=== PATIENT | male | born 1985 | race Two or more races ===

== ENCOUNTER 2018-11-03 12:00 | Inpatient (IN) | payer MEDICAID ==
[~2018-11-03] VITALS: Ht 170.2 cm; Wt 66.0 kg
[2018-11-03 12:31] LABS: CLARITY URINE CLEAR (CLEAR); COLOR URINE YELLOW (YELLOW); KETONES URINE NEGATIVE (NEGATIVE); LEUKOCYTE ESTERASE URINE NEGATIVE (NEGATIVE); NITRITE URINE NEGATIVE (NEGATIVE); OCCULT BLOOD URINE NEGATIVE (NEGATIVE); PH URINE 5.5 (4.5-8.0); PROTEIN URINE NEGATIVE (NEGATIVE); SPECIFIC GRAVITY URINE 1.004 (1.005-1.030); UROBILINOGEN URINE 0.2 E.U./dL (0.2-1.0)
[2018-11-03] MEDS ORDERED: SODIUM CHLORIDE 0.9% 1,000 ML IV ONE (18:43)
[2018-11-03] MEDS ORDERED: ONDANSETRON HCL 4MG/2ML INJ IV STA (18:43)
[2018-11-03] MEDS ORDERED: FENTANYL CITRATE/PF 50MCG/ML 2ML VIAL IV ONE ×2 (18:45→21:15)
[2018-11-03 19:00] LABS: BASOPHILS % 0.9 % (0.0-2.0); EOSINOPHILS % 3.1 % (0.0-5.0); HEMATOCRIT. 38.4 % (42.0-52.0); HEMOGLOBIN. 12.9 g/dL (14.0-18.0); LYMPHOCYTES % 31.8 % (20.0-50.0); MEAN CORPUSCULAR HEMOGLOBIN 32.6 pg (28.0-32.0); MEAN CORPUSCULAR VOLUME 97.1 fL (80.0-94.0); MEAN PLATELET VOLUME 6.7 fl (7.4-10.4); MONOCYTES % 12.2 % (2.0-8.0); PLATELET 365 x1000/uL (130-400); RED BLOOD CELL COUNT 3.96 mill/uL (4.7-6.1); RED CELL DISTRIBUTION WIDTH 15.4 % (11.6-14.6)
[2018-11-03 19:05] LABS: CHLORIDE 106 mEq/L (98-107); PROTHROMBIN TIME 10.2 sec (9.1-11.1)
[2018-11-03] MEDS ORDERED: IOHEXOL-300 100 ML BOTTLE ONE (20:26)
[2018-11-03] MEDS ORDERED: FENTANYL CITRATE/PF 50MCG/ML 2ML VIAL IV NR (22:15)
[2018-11-04] MEDS: DEXT 5%/0.45% NACL 1000ML 1,000 ML IV SCH (08:00)
[2018-11-04] MEDS ORDERED: MORPHINE SULFATE 2 MG/ML CPJ (NOT FOR IM USE) IV PRN (08:00)
[2018-11-04] MEDS ORDERED: ACETAMINOPHEN 325MG TABLET PO PRN (08:00)
[2018-11-04] MEDS ORDERED: ONDANSETRON HCL 4MG/2ML INJ IV PRN (08:00)
[2018-11-04] MEDS ORDERED: MORPHINE SULFATE 4 MG/ML CPJ (NOT FOR IM USE) IV PRN (08:15)
[2018-11-04 09:00] VITALS: BP 113/63
[2018-11-04 12:00] VITALS: BP 113/64
[2018-11-04] MEDS: HYDROMORPHONE HCL/PF 2MG/ML CPJ IV PRN ×4 (12:37→20:57)
[2018-11-04 14:17] LABS: *AMPHETAMINES SCREEN URINE NEGATIVE (NEGATIVE)
[2018-11-04 14:18] LABS: *BARBITURATES SCREEN URINE NEGATIVE (NEGATIVE); *BENZODIAZEPINES SCREEN URINE PRESUMTIVE POSITIVE (NEGATIVE); *COCAINE SCREEN URINE NEGATIVE (NEGATIVE); METHADONE URINE SCREEN NEGATIVE (NEGATIVE); OPIATES URINE SCREEN PRESUMTIVE POSITIVE (NEGATIVE); PHENCYCLIDINE URINE SCREEN NEGATIVE (NEGATIVE)
[2018-11-04 14:19] LABS: CANNABINOID URINE SCREEN NEGATIVE (NEGATIVE)
[2018-11-04 16:00] VITALS: BP 104/61
[2018-11-05] MEDS: HYDROMORPHONE HCL/PF 2MG/ML CPJ IV PRN ×7 (01:08→21:35)
[2018-11-05] MEDS: DEXT 5%/0.45% NACL 1000ML 1,000 ML IV SCH ×2 (01:09→10:40)
[2018-11-05 06:44] LABS: BASOPHILS % 0.7 % (0.0-2.0); HEMATOCRIT. 36.7 % (42.0-52.0); HEMOGLOBIN. 12.5 g/dL (14.0-18.0); LYMPHOCYTES % 33.4 % (20.0-50.0); MEAN CORPUSCULAR HEMOGLOBIN 33.1 pg (28.0-32.0); MEAN CORPUSCULAR VOLUME 96.9 fL (80.0-94.0); MEAN PLATELET VOLUME 6.8 fl (7.4-10.4); MONOCYTES % 12.6 % (2.0-8.0); NEUTROPHILS % 49.3 % (40.0-76.0); PLATELET 309 x1000/uL (130-400); RED BLOOD CELL COUNT 3.79 mill/uL (4.7-6.1); RED CELL DISTRIBUTION WIDTH 14.9 % (11.6-14.6)
[2018-11-05 07:02] LABS: CHLORIDE 100 mEq/L (98-107)
[2018-11-05 08:00] VITALS: BP 114/72
[2018-11-05 11:52] VITALS: BP 110/60
[2018-11-05] MEDS ORDERED: LORAZEPAM 2MG/ML CPJ IV NR (13:30)
[2018-11-05 15:58] VITALS: BP 113/63
[2018-11-05 20:00] VITALS: BP 112/59
[2018-11-06] VITALS: BP_SYST 108; BP_SYST 118; BP_DIAS 65; BP_DIAS 76
[2018-11-06] MEDS: HYDROMORPHONE HCL/PF 2MG/ML CPJ IV PRN ×5 (00:43→12:44)
[2018-11-06] MEDS: DEXT 5%/0.45% NACL 1000ML 1,000 ML IV SCH ×2 (00:44→14:05)
[2018-11-06 04:00] VITALS: BP 108/76
[2018-11-06 08:00] VITALS: BP 110/80
[2018-11-06 12:00] VITALS: BP 112/70
[2018-11-06 13:10] VITALS: BP 120/84
== END 2018-11-06 14:05 | disposition home or self-care (01) | DRG 282 ==
LOC: ER 12:00 → 6EST 23:19 → EDBEDREQTM 23:21 → EDBEDREQ 23:21 → ENRESERV 11-04 07:23
PROVIDERS: ADMIT Internal Medicine; ATTEND Internal Medicine
DX: K86.2 Cyst of pancreas (principal); D64.9 Anemia, unspecified; K86.3 Pseudocyst of pancreas; K86.1 Other chronic pancreatitis; Z59.0 Homelessness; F17.200 Nicotine dependence, unspecified, uncomplicated; K86.89 Other specified diseases of pancreas
CPT/HCPCS: 36415; 74177; 74181; 80048; 80076; 80305; 83036; 96361; 96374; 96375; 96376; 99285; J1170; J2060; J2270; J2405; J3010; Q9967

== ENCOUNTER 2021-01-14 18:08 | Emergency (ER) | payer MEDICAID ==
[~2021-01-14] VITALS: Ht 170.2 cm; Wt 66.0 kg
[2021-01-14 21:55] LABS: BASOPHILS % 0.9 % (0.0-2.0); EOSINOPHILS % 1.7 % (0.0-5.0); HEMATOCRIT. 34.7 % (42.0-52.0); HEMOGLOBIN. 12.3 g/dL (14.0-18.0); LYMPHOCYTES % 26.9 % (20.0-50.0); MEAN CORPUSCULAR HEMOGLOBIN 35.5 pg (28.0-32.0); MEAN CORPUSCULAR VOLUME 99.8 fL (80.0-94.0); MEAN PLATELET VOLUME 6.1 fl (7.4-10.4); MONOCYTES % 7.3 % (2.0-8.0); NEUTROPHILS % 63.2 % (40.0-76.0); PLATELET 590 x1000/uL (130-400); RED BLOOD CELL COUNT 3.48 mill/uL (4.7-6.1); RED CELL DISTRIBUTION WIDTH 13.8 % (11.6-14.6)
[2021-01-14 22:02] LABS: CHLORIDE 107 mEq/L (98-107)
[2021-01-14] MEDS ORDERED: MAGNESIUM/ALUMINUM HYDROXIDE/SIMETHICONE 30ML UDC PO STA (22:28)
[2021-01-14 23:28] VITALS: BP 105/72
== END 2021-01-14 23:38 | disposition home or self-care (01) ==
LOC: ER 18:08
DX: R07.89 Other chest pain (principal); I10 Essential (primary) hypertension; F10.229 Alcohol dependence with intoxication, unspecified; Z98.890 Other specified postprocedural states; Y90.0 Blood alcohol level of less than 20 mg/100 ml; Z88.8 Allergy status to other drugs, medicaments and biological substances
CPT/HCPCS: 36415; 71045; 80048; 84484; 85025; 99284

== ENCOUNTER 2021-01-15 01:55 | Emergency (ER) | payer MEDICAID ==
[~2021-01-15] VITALS: Ht 170.2 cm; Wt 66.0 kg
[2021-01-15 02:19] VITALS: BP 130/75
[2021-01-15] MEDS ORDERED: ONDANSETRON 4MG ODT PO STA (02:29)
[2021-01-15] MEDS ORDERED: MAGNESIUM/ALUMINUM HYDROXIDE/SIMETHICONE 30ML UDC PO STA (02:29)
== END 2021-01-15 04:17 | disposition home or self-care (01) ==
LOC: ER 02:13
DX: R10.9 Unspecified abdominal pain (principal); G40.909 Epilepsy, unspecified, not intractable, without status epilepticus; F43.10 Post-traumatic stress disorder, unspecified; F10.21 Alcohol dependence, in remission; Z87.19 Personal history of other diseases of the digestive system; Z88.8 Allergy status to other drugs, medicaments and biological substances
CPT/HCPCS: 36415; 83690; 99283; Q0162

== ENCOUNTER 2021-01-15 13:26 | Emergency (ER) | payer MEDICAID | END 2021-01-15 14:51 | disposition left against medical advice (07) | LOC: ER 13:26 | DX: Z53.21 Procedure and treatment not carried out due to patient leaving prior to being seen by health care provider (principal) ==

== ENCOUNTER → 2021-01-15 | Emergency (ER) | payer MEDICAID | END | disposition left against medical advice (07) | LOC: ER 07:31 | DX: Z53.21 Procedure and treatment not carried out due to patient leaving prior to being seen by health care provider (principal) ==

== ENCOUNTER 2021-01-31 15:37 | Inpatient (IN) | payer MEDICAID ==
[~2021-01-31] VITALS: Ht 170.2 cm; Wt 61.2 kg
[2021-01-31] MEDS ORDERED: ONDANSETRON HCL 4MG/2ML INJ IV STA (16:09)
[2021-01-31] MEDS ORDERED: MORPHINE SULFATE 4 MG/ML CPJ (NOT FOR IM USE) IV STA (16:09)
[2021-01-31] MEDS ORDERED: SODIUM CHLORIDE 0.9% 1,000 ML IV ONE (16:15)
[2021-01-31 16:59] LABS: BASOPHILS % 1.2 % (0.0-2.0); EOSINOPHILS % 2.7 % (0.0-5.0); HEMATOCRIT. 34.7 % (42.0-52.0); LYMPHOCYTES % 43.7 % (20.0-50.0); MEAN CORPUSCULAR VOLUME 98.4 fL (80.0-94.0); MEAN PLATELET VOLUME 6.4 fl (7.4-10.4); NEUTROPHILS % 41.4 % (40.0-76.0); PLATELET 293 x1000/uL (130-400); RED BLOOD CELL COUNT 3.53 mill/uL (4.7-6.1); RED CELL DISTRIBUTION WIDTH 14.2 % (11.6-14.6)
[2021-01-31 17:07] LABS: CLARITY URINE CLEAR (CLEAR); COLOR URINE YELLOW (YELLOW); KETONES URINE TRACE (NEGATIVE); LEUKOCYTE ESTERASE URINE NEGATIVE (NEGATIVE); NITRITE URINE NEGATIVE (NEGATIVE); OCCULT BLOOD URINE NEGATIVE (NEGATIVE); PH URINE 5.5 (4.5-8.0); PROTEIN URINE NEGATIVE (NEGATIVE); SPECIFIC GRAVITY URINE 1.036 (1.005-1.030); UROBILINOGEN URINE 0.2 E.U./dL (0.2-1.0)
[2021-01-31 17:07] LABS: CHLORIDE 104 mEq/L (98-107)
[2021-01-31 17:11] LABS: ETHANOL BLOOD 215 mg/dL
[2021-01-31 17:14] LABS: PROTHROMBIN TIME 10.3 sec (9.6-11.0)
[2021-01-31 18:15] LABS: *BARBITURATES SCREEN URINE NEGATIVE (NEGATIVE); *BENZODIAZEPINES SCREEN URINE NEGATIVE (NEGATIVE); *COCAINE SCREEN URINE NEGATIVE (NEGATIVE); METHADONE URINE SCREEN NEGATIVE (NEGATIVE); OPIATES URINE SCREEN NEGATIVE (NEGATIVE)
[2021-01-31 18:16] LABS: *AMPHETAMINES SCREEN URINE PRESUMTIVE POSITIVE (NEGATIVE); CANNABINOID URINE SCREEN NEGATIVE (NEGATIVE); PHENCYCLIDINE URINE SCREEN NEGATIVE (NEGATIVE)
[2021-01-31 20:00] VITALS: BP 116/79
[2021-01-31] MEDS ORDERED: ONDANSETRON HCL 4MG/2ML INJ IV PRN (20:22)
[2021-01-31] MEDS ORDERED: ONDANSETRON HCL 4MG/2ML INJ IV ONE (20:30)
[2021-01-31] MEDS ORDERED: MORPHINE SULFATE 4 MG/ML CPJ (NOT FOR IM USE) IV ONE (20:30)
[2021-01-31] MEDS ORDERED: LEVOFLOXACIN 750MG PREMIX 150 ML IV ONE (20:30)
[2021-01-31] MEDS ORDERED: DEXT 5%/0.9% NACL 1,000 ML IV ONE (20:30)
[2021-01-31] MEDS: MORPHINE SULFATE 2 MG/ML CPJ (NOT FOR IM USE) IV PRN (20:39)
[2021-01-31 21:30] VITALS: BP 116/79
[2021-01-31] MEDS ORDERED: IOHEXOL-300 100 ML BOTTLE ONE (22:58)
[2021-01-31] MEDS ORDERED: AMYL1CAP59 MT (23:28)
[2021-01-31] MEDS ORDERED: MELA2.5T PO (23:28)
[2021-01-31] MEDS ORDERED: PRAZ1CAP5 MT (23:28)
[2021-01-31] MEDS ORDERED: HYDR4TAB4 MT (23:28)
[2021-01-31] MEDS ORDERED: TRAZ-251 MT (23:28)
[2021-01-31] MEDS ORDERED: SERT25TA74 MT (23:28)
[2021-02-01] MEDS ORDERED: ONDANSETRON HCL 4MG/2ML INJ IV PRN (00:15)
[2021-02-01] MEDS ORDERED: ZOLPIDEM TARTRATE 5MG TABLET PO PRN (00:15)
[2021-02-01] MEDS ORDERED: MORPHINE SULFATE 2 MG/ML CPJ (NOT FOR IM USE) IV PRN (00:15)
[2021-02-01] MEDS: MORPHINE SULFATE 2 MG/ML CPJ (NOT FOR IM USE) IV PRN ×5 (02:01→20:15)
[2021-02-01 04:00] VITALS: BP 108/72
[2021-02-01 06:25] LABS: CHLORIDE 105 mEq/L (98-107)
[2021-02-01 06:34] LABS: HDL CHOLESTEROL 79 mg/dL (40-59)
[2021-02-01 06:42] LABS: AMYLASE 107 IU/L (25-115)
[2021-02-01 06:49] LABS: LDL CHOLESTEROL 41 mg/dL (5-100)
[2021-02-01 07:27] LABS: BASOPHILS % 0.8 % (0.0-2.0); EOSINOPHILS % 1.8 % (0.0-5.0); HEMATOCRIT. 35.4 % (42.0-52.0); LYMPHOCYTES % 30.3 % (20.0-50.0); MEAN CORPUSCULAR HEMOGLOBIN 34.2 pg (28.0-32.0); MEAN CORPUSCULAR VOLUME 100.9 fL (80.0-94.0); MEAN PLATELET VOLUME 7.2 fl (7.4-10.4); MONOCYTES % 9.3 % (2.0-8.0); NEUTROPHILS % 57.8 % (40.0-76.0); PLATELET 284 x1000/uL (130-400); RED BLOOD CELL COUNT 3.51 mill/uL (4.7-6.1); RED CELL DISTRIBUTION WIDTH 14.1 % (11.6-14.6)
[2021-02-01 08:00] VITALS: BP 109/70
[2021-02-01] MEDS: THIAMINE HCL 100MG TABLET PO SCH (09:21)
[2021-02-01] MEDS: PANTOPRAZOLE SODIUM 40 MG/VIAL IV SCH (09:21)
[2021-02-01] MEDS: DEXT 5%/0.45% NACL KCL 20MEQ/L 1,000 ML IV SCH ×2 (09:46→17:42)
[2021-02-01 16:00] VITALS: BP 124/82
[2021-02-01 20:28] VITALS: BP 137/65
[2021-02-02] VITALS: BP 117/79
[2021-02-02] MEDS: DEXT 5%/0.45% NACL KCL 20MEQ/L 1,000 ML IV SCH (01:17)
[2021-02-02] MEDS: MORPHINE SULFATE 2 MG/ML CPJ (NOT FOR IM USE) IV PRN ×3 (01:18→09:20)
[2021-02-02 04:00] VITALS: BP 114/78
[2021-02-02 08:00] VITALS: BP 148/82
[2021-02-02] MEDS: PANTOPRAZOLE SODIUM 40 MG/VIAL IV SCH (09:20)
[2021-02-02] MEDS: THIAMINE HCL 100MG TABLET PO SCH (09:20)
[2021-02-02 09:47] LABS: BASOPHILS % 0.7 % (0.0-2.0); EOSINOPHILS % 2.7 % (0.0-5.0); HEMOGLOBIN. 13.6 g/dL (14.0-18.0); LYMPHOCYTES % 27.1 % (20.0-50.0); MEAN CORPUSCULAR HEMOGLOBIN 33.7 pg (28.0-32.0); MEAN CORPUSCULAR VOLUME 101.6 fL (80.0-94.0); MEAN PLATELET VOLUME 7.2 fl (7.4-10.4); MONOCYTES % 10.1 % (2.0-8.0); NEUTROPHILS % 59.4 % (40.0-76.0); PLATELET 58 x1000/uL (130-400); RED BLOOD CELL COUNT 4.04 mill/uL (4.7-6.1); RED CELL DISTRIBUTION WIDTH 13.9 % (11.6-14.6)
[2021-02-02 09:51] LABS: CHLORIDE 104 mEq/L (98-107)
[2021-02-02 12:00] VITALS: BP 125/86
[2021-02-02] MEDS ORDERED: HYDROCODONE/ACETAMINOPHEN 5/325MG TABLET PO PRN (13:00)
[2021-02-02 16:51] VITALS: BP 125/86
== END 2021-02-02 17:45 | disposition home or self-care (01) | DRG 282 ==
LOC: ER 15:37 → 6EST 18:11 → ENRESERV 20:48
PROVIDERS: ADMIT Internal Medicine; ATTEND Internal Medicine
DX: K86.9 Disease of pancreas, unspecified (principal); D64.9 Anemia, unspecified; K86.1 Other chronic pancreatitis; F10.229 Alcohol dependence with intoxication, unspecified; F15.90 Other stimulant use, unspecified, uncomplicated; F17.200 Nicotine dependence, unspecified, uncomplicated; F43.10 Post-traumatic stress disorder, unspecified; J98.11 Atelectasis; Y90.7 Blood alcohol level of 200-239 mg/100 ml; G89.29 Other chronic pain; R10.84 Generalized abdominal pain; Z88.8 Allergy status to other drugs, medicaments and biological substances; Z79.899 Other long term (current) drug therapy; Z71.51 Drug abuse counseling and surveillance of drug abuser
CPT/HCPCS: 36415; 71045; 74177; 76700; 80048; 80053; 80061; 80305; 80320; 81003; 82150; 83605; 84484; 85025; 86850; 86900; 93005; 99291; C9113; J1956; J2270; J2405; J7030; J7042; Q9967; G0480

== ENCOUNTER 2021-08-19 22:15 | Emergency (ER) | payer MEDICAID ==
[~2021-08-19] VITALS: Ht 170.2 cm; Wt 66.0 kg
[~2021-08-19 22:15] MED LIST: AMYL1CAP59 MT; HYDR-4001 MT; HYDR-4350 MT; HYDR4TAB4 MT; MELA2.5T PO; PRAZ1CAP5 MT; SERT20OR6 PO; SERT25TA74 MT; TRAZ-251 MT; TRAZ-251 PO
[2021-08-19] MEDS ORDERED: MORPHINE SULFATE 4 MG/ML CPJ (NOT FOR IM USE) IV STA (23:33)
[2021-08-19] MEDS ORDERED: SODIUM CHLORIDE 0.9% 1,000 ML IV ONE (23:45)
[2021-08-20 00:43] LABS: BASOPHILS % 1.3 % (0.0-2.0); EOSINOPHILS % 6.6 % (0.0-5.0); HEMATOCRIT. 36.7 % (42.0-52.0); HEMOGLOBIN. 12.4 g/dL (14.0-18.0); LYMPHOCYTES % 42.9 % (20.0-50.0); MEAN CORPUSCULAR HEMOGLOBIN 34.5 pg (28.0-32.0); MEAN CORPUSCULAR VOLUME 101.9 fL (80.0-94.0); MEAN PLATELET VOLUME 7.2 fl (7.4-10.4); MONOCYTES % 10.4 % (2.0-8.0); NEUTROPHILS % 38.8 % (40.0-76.0); PLATELET 226 x1000/uL (130-400); RED CELL DISTRIBUTION WIDTH 15.6 % (11.6-14.6)
[2021-08-20 00:45] LABS: CHLORIDE 107 mEq/L (98-107)
[2021-08-20 00:49] LABS: ETHANOL BLOOD 126 mg/dL
[2021-08-20] MEDS ORDERED: MORPHINE SULFATE 4 MG/ML CPJ (NOT FOR IM USE) IV ONE (03:00)
[2021-08-20] MEDS ORDERED: SODIUM CHLORIDE 0.9% 1,000 ML IV ONE (03:00)
[2021-08-20] MEDS ORDERED: MORP15TA67 MT (03:44)
[2021-08-20 04:10] VITALS: BP 102/63
== END 2021-08-20 05:05 | disposition home or self-care (01) ==
LOC: ER 22:15
DX: R51.9 Headache, unspecified (principal); K86.1 Other chronic pancreatitis; G40.909 Epilepsy, unspecified, not intractable, without status epilepticus; Z88.5 Allergy status to narcotic agent; Z88.8 Allergy status to other drugs, medicaments and biological substances; Z59.00 Homelessness unspecified; Y04.0XXA Assault by unarmed brawl or fight, initial encounter; Y93.89 Activity, other specified; Y92.59 Other trade areas as the place of occurrence of the external cause
CPT/HCPCS: 36415; 70450; 71045; 74176; 76700; 80053; 80307; 80320; 80329; 82248; 83690; 84484; 85025; 96361; 96374; 96376; 99285; J2270; J7030; 80076; G0480

== ENCOUNTER 2023-03-28 09:50 | Emergency (ER) | payer MEDICAID ==
[~2023-03-28] VITALS: Ht 175.3 cm; Wt 68.0 kg
[~2023-03-28 09:50] MED LIST changes: -MELA2.5T PO; +MELA2.5T16 PO; +MORP15TA67 MT
[2023-03-28 09:55] VITALS: O2SAT 98
[2023-03-28] MEDS ORDERED: ONDANSETRON HCL 4MG/2ML INJ IV STA (10:03)
[2023-03-28] MEDS ORDERED: FAMOTIDINE 20MG/2ML VIAL IV STA (10:03)
[2023-03-28] MEDS ORDERED: SODIUM CHLORIDE 0.9% 1,000 ML IV ONE (10:15)
[2023-03-28] MEDS ORDERED: ACETAMINOPHEN 650MG/20.3ML UDC PO ONE (10:15)
[2023-03-28 11:05] LABS: BASOPHILS % 0.9 % (0.0-2.0); EOSINOPHILS % 2.6 % (0.0-5.0); HEMATOCRIT. 35.4 % (42.0-52.0); HEMOGLOBIN. 12.1 g/dL (14.0-18.0); MEAN CORPUSCULAR HEMOGLOBIN 33.5 pg (28.0-32.0); MEAN CORPUSCULAR VOLUME 97.6 fL (80.0-94.0); MEAN PLATELET VOLUME 6.9 fl (7.4-10.4); MONOCYTES % 11.2 % (2.0-8.0); NEUTROPHILS % 42.3 % (40.0-76.0); PLATELET 304 x1000/uL (130-400); RED BLOOD CELL COUNT 3.63 mill/uL (4.7-6.1); RED CELL DISTRIBUTION WIDTH 14.1 % (11.6-14.6)
[2023-03-28 11:15] LABS: CHLORIDE 107 mEq/L (98-107); PROTHROMBIN TIME 10.9 sec (9.6-11.0)
[2023-03-28 11:24] LABS: ETHANOL BLOOD < 10 mg/dL (-10)
[2023-03-28] MEDS ORDERED: KETOROLAC 60MG/2ML VIAL IM ONE (11:45)
[2023-03-28 12:00] VITALS: BP 118/62; PULSE 80; RESP 16; TEMP 99
[2023-03-28] MEDS ORDERED: MAGNESIUM/ALUMINUM HYDROXIDE/SIMETHICONE 30ML UDC PO ONE (12:00)
== END 2023-03-28 12:24 ==
LOC: ER 09:50
DX: K86.1 Other chronic pancreatitis (principal); Z88.5 Allergy status to narcotic agent; Z88.6 Allergy status to analgesic agent; Z88.9 Allergy status to unspecified drugs, medicaments and biological substances
CPT/HCPCS: 80053; 80320; 83605; 83690; 85025; 85610; 84484; 36415; 71045; 74176; 96361; 96374; 96375; 99285; J3490; J1885; J2405; J7030; G0480

== ENCOUNTER 2024-03-04 13:40 | Emergency (ER) | payer MEDICAID ==
[~2024-03-04] VITALS: Ht 170.2 cm; Wt 75.0 kg
[2024-03-04 13:47] VITALS: BP 123/79; PULSE 128; RESP 16; TEMP 98.2; O2SAT 99
[2024-03-06] MEDS ORDERED: ONDA4TAB50 SL (11:13)
[2024-03-06] MEDS ORDERED: PANT40TA51 PO (11:13)
[2024-03-06] MEDS ORDERED: TOPUD PO (11:13)
[2024-03-06] MEDS ORDERED: CHLO25CA10 PO ×2 (11:13)
== END 2024-03-05 03:00 | disposition home or self-care (01) ==
LOC: ER 13:40
DX: F10.229 Alcohol dependence with intoxication, unspecified (principal); R56.9 Unspecified convulsions; Z79.899 Other long term (current) drug therapy; Y90.9 Presence of alcohol in blood, level not specified
CPT/HCPCS: 99291